=== PATIENT | female | born 1975 | race Asian ===

== ENCOUNTER → 2019-03-01 | Outpatient (CLI) | payer OTHER ==
[2019-03-01 15:33] LABS: ABSOLUTE LYMPHOCYTES 1.1 thou/uL (0.8-5.3); ABSOLUTE MONOCYTES 0.4 thou/uL (0.0-1.2); ABSOLUTE NEUTROPHILS 2.9 thou/uL (1.6-8.1); BASOPHILS 0.8 %; EOSINOPHILS 1.1 %; HEMATOCRIT 23.7 % (37.0-47.0); LYMPHOCYTES 25.4 %; MCH 16.7 pg (26.0-34.0); MCHC 28.8 g/dL (28.0-37.0); MONOCYTES 8.3 %; MPV 8.3 fl. (7.2-11.1); NUCLEATED RBCS 0 /100WBC; PLATELET COUNT* 329 thou/uL (150-400); POLYS 64.4 %; RBC 4.09 mil/uL (4.20-5.00); RDW-CV 19.3 % (10.5-14.5); WBC 4.4 thou/uL (4.0-11.0)
[2019-03-01 15:43] LABS: HEMOGLOBIN 6.8 gm/dL (12.0-15.0)
[2019-03-01 15:48] LABS: ALBUMIN 4.4 g/dL (3.4-5.0); ALKALINE PHOSPHATASE 39 U/L (46-116); ANION GAP 11 mmol/L (7-16); BUN 13 mg/dL (7-18); CALCIUM 9.4 mg/dL (8.5-10.1); CHLORIDE 102 mmol/L (98-107); CHOLESTEROL 165 mg/dL (<200); CO2 26 mmol/L (21-32); CREATININE 0.9 mg/dL (0.6-1.3); GLUCOSE 89 mg/dL (70-99); HDL CHOLESTEROL 77 mg/dL (>40); LDL CHOLESTEROL 72 mg/dL (<100); POTASSIUM 3.5 mmol/L (3.5-5.1); SGOT 12 U/L (15-37); SGPT 22 U/L (30-65); SODIUM 139 mmol/L (136-145); TC:HDL 2.1 Ratio (Not establshd); TOTAL BILIRUBIN 0.4 mg/dL (<0.1-1.0); TOTAL PROTEIN 8.1 g/dL (6.4-8.2); TRIGLYCERIDE 82 mg/dL (<150); VLDL 16 mg/dL (<40)
[2019-03-01 15:49] LABS: SERUM ASSESSMENT CLEAR
[2019-03-01 16:20] LABS: ANISOCYTOSIS 2+; PLATELET ESTIMATE ADEQUATE
[2019-03-01 16:21] LABS: MICROCYTES 2+
[2019-03-01 17:24] LABS: ESR (SEDRATE) 11 mm/hr (0-20)
[2019-03-02 02:06] LABS: GLYCOHEMOGLOBIN (HGB A1C) 5.1 % (4.8-5.6)
[2019-03-02 22:08] LABS: HIV-1/HIV-2 ANTIBODY Non Reactive (Non Reactive)
[2019-03-03 02:08] LABS: HEPATITIS B SURFACE AG Negative (Negative)
[2019-03-04 11:11] LABS: ANA INTERPRETATION Positive (Negative)
[2019-03-04 19:11] LABS: ANA INTERPRETATION Positive (())
== END ==
LOC: M.LAB 14:36
PROVIDERS: Family Medicine
DX: Z13.220 Encounter for screening for lipoid disorders (principal); Z13.1 Encounter for screening for diabetes mellitus; R50.9 Fever, unspecified